=== PATIENT | female | born 1960 | race Caucasian/White ===

== ENCOUNTER → 2023-12-01 09:50 | Outpatient (REF) | payer BC, SELFPAY | LOC: HWRAD 09:50 | PROVIDERS: ATTENDING PHYSICIAN Legal Medicine | DX: M22.2X1 Patellofemoral disorders, right knee (principal) | CPT/HCPCS: 73562 ==

== ENCOUNTER → 2023-12-22 17:14 | Outpatient (REF) | payer BC, SELFPAY | LOC: HWWDC 17:14 | PROVIDERS: ATTENDING PHYSICIAN Legal Medicine; REFERRING PHYSICIAN Obstetrics & Gynecology | DX: Z12.31 Encounter for screening mammogram for malignant neoplasm of breast (principal) | CPT/HCPCS: 77063; 77067 ==

== ENCOUNTER → 2023-12-24 14:30 | Outpatient (REF) | payer BC, SELFPAY | LOC: PAVMRI 14:30 | PROVIDERS: ATTENDING PHYSICIAN Legal Medicine | DX: M22.2X1 Patellofemoral disorders, right knee (principal) | CPT/HCPCS: 73721 ==

== ENCOUNTER → 2024-04-14 09:23 | Outpatient (REF) | payer BC, SELFPAY | LOC: HWRAD 09:23 | PROVIDERS: ATTENDING PHYSICIAN Legal Medicine | DX: R63.4 Abnormal weight loss (principal) | CPT/HCPCS: 76700 ==

== ENCOUNTER → 2024-06-30 08:40 | Outpatient (REF) | payer MEDICARE, SELFPAY | LOC: HWRAD 08:40 | PROVIDERS: ATTENDING PHYSICIAN Legal Medicine; REFERRING PHYSICIAN Obstetrics & Gynecology | DX: M85.88 Other specified disorders of bone density and structure, other site (principal) | CPT/HCPCS: 77080 ==